=== PATIENT | female | born 1985 | race Two or more races ===

== ENCOUNTER 2019-03-19 04:00 | Emergency (ER) | payer MEDICAID, OTHER ==
[2019-03-19] MEDS ORDERED: Albuterol/Ipratropium NEB.SOL* Albuterol 2.5 MG/Ipratropium 0.5 MG 3 ML INH ONE (04:39)
--- NOTE | 2019-03-19 04:58 | ED ---
Shortness of Breath - HPI Summary HPI Summary: This patient is a 34 year old F presenting to [facility] with a chief complaint of SOB since prior to arrival. Pt reports she has an allergy to dust. She began sneezing and having a runny nose so she took Benadryl. Afterwards she could not breathe. She reports she had not taken Benadryl for quite a while before this episode. Pt has not taken any medication recently. Pt does not use drugs, drink or smoke. Pt has not tried anything breathing treatments. - History of Current Complaint Chief Complaint: EDShortnessOfBreath Time Seen by Provider: 03/19/19 04:12 Hx Obtained From: Patient Onset/Duration: Sudden Onset, Still Present Timing: Constant Dyspnea At: Rest Aggravating Factors: Other - Medication Alleviating Factors: Nothing Associated Signs & Symptoms: Negative - Allergy/Home Medications Allergies/Adverse Reactions: Allergies Allergy/AdvReac Type Severity Reaction Status Date / Time house dust Allergy Shortness Verified 03/19/19 04:19 of Breath MS Povidone Iodine Allergy Hives Verified 05/28/16 21:04 [From Betadine] Home Medications: Home Medications NK [No Home Medications Reported] 03/19/19 [History Confirmed 03/19/19] PMH/Surg Hx/FS Hx/Imm Hx Sensory History: Denies: Hx Legally Blind EENT History: Denies: Hx Deafness - Surgical History Surgery Procedure, Year, and Place: appy 2002 - Immunization History Date of Tetanus Vaccine: UTD Date of Influenza Vaccine: 2014 Infectious Disease History: No Infectious Disease History: Reports: Traveled Outside the [place] in Last 30 Days - Family History Known Family History: Negative: Cardiac Disease - Social History Alcohol Use: None Hx Substance Use: No Substance Use Type: Reports: None Hx Tobacco Use: No Smoking Status (MU): Never Smoked Tobacco - Additional Comments History Additional Comments: Home Medications Medication Instructions Recorded Confirmed Type NK [No Home Medications Reported] 03/19/19 03/19/19 History Review of Systems Negative: Fever Positive: Shortness Of Breath All Other Systems Reviewed And Are Negative: Yes Physical Exam - Summary Physical Exam Summary: General: Well-developed, Well-nourished Female. Appears in moderate respiratory distress HEENT: Normocephalic, Atraumatic. Eyes: Conjuctiva normal, PERRL. Ears: TMs within normal limits. Nares: (-) discharge, (-) erythema. Oropharynx: Clear, mucous membranes moist, (-) exudates. Neck: Soft, FROM, (-) lymphadenopathy, (-) thyromegaly, (-) JVD. Cardiovascular: Normal sinus rhythm, (-) murmur. Lungs: Clear to auscultation bilaterally (-) wheezes, (-) rales, (-) rhonchi. Abdomen: Soft, non-tender, non-distended, (-) organomegaly, normal bowel sounds. Back: (-) CVA tenderness Extremities: No edema. Skin: Warm, dry, (-) rash. Neuro: Alert and oriented x3, no focal deficits. Psychiatric: Moderately anxious. Triage Information Reviewed: Yes Vital Signs On Initial Exam: Initial Vitals Temp Pulse Resp BP Pulse Ox 98.8 F 83 20 00/00 100 03/19/19 04:01 03/19/19 04:01 03/19/19 04:01 03/19/19 04:01 03/19/19 04:01 Vital Signs Reviewed: Yes Procedures - Sedation Patient Received Moderate/Deep Sedation with Procedure: No Diagnostics - Vital Signs Vital Signs Temp Pulse Resp BP Pulse Ox 03/19/19 04:15 90 102/62 100 03/19/19 04:13 84 100 03/19/19 04:01 98.8 F 83 20 00/ 100 - Laboratory Lab Statement: Any lab studies that have been ordered have been reviewed, and results considered in the medical decision making process. Re-Evaluation - Re-Evaluation First Eval Re-Evaluation Time: 05:33 Change: Improved Comment: Pt feels better but still reports some SOB. I have discussed results with the patient. Discussed symptoms that warrant immediate return to ED. Course/Dx - Course Course Of Treatment: This patient is a 34 year old F presenting to [facility] with a chief complaint of SOB since prior to arrival. Pt reports she has an allergy to dust. She began sneezing and having a runny nose so she took Benadryl. Afterwards she could not breathe. She reports she had not taken Benadryl for quite a while before this episode. Pt has not taken any medication recently. Pt does not use drugs, drink or smoke. Pt has not tried anything breathing treatments. Physical exam findings are nml, except pt appears to be in moderate respiratory distress, and she is moderately anxious. In the ED course the patient was given albuterol. After receiving albuterol pt felt much better. Patient will be discharged. The patient is agreeable with this plan. - Diagnoses Provider Diagnoses: SOB (shortness of breath), Environmental allergies Discharge ED - Sign-Out/Discharge Documenting (check all that apply): Patient Departure - Discharge - Discharge Plan Condition: Stable Disposition: HOME Patient Education Materials: Shortness of Breath (ED) Referrals: Scarlet Anderson MD [Primary Care Provider] - 3 Days Additional Instructions: Please follow up with your primary care physician within three days. Please return to ED for any new or worsening symptoms. - Billing Disposition and Condition Condition: STABLE Disposition: Home - Attestation Statements Document Initiated by Becka: Yes Documenting Scribe: Gertrudis Workman Provider For Whom Blazee is Documenting (Include Credential): Sherry Baker MD Scribe Attestation: Gertrudis Weldon, scribed for Sherry Baker MD on 03/19/19 at 0542. Scribe Documentation Reviewed: Yes Provider Attestation: The documentation as recorded by the Gertrudis leavitt accurately reflects the service I personally performed and the decisions made by , Sherry Baker MD Status of Scribe Document: Viewed
[2019-03-19 05:43] VITALS: BP 105/59
[2019-03-19] MEDS ORDERED: Albuterol HFA INHALER* 8 gm MDI INH ONE (05:47)
[2019-03-19] MEDS ORDERED: Albuterol HFA INHALER* 8 gm MDI INH SCH (06:00)
== END 2019-03-19 05:45 | disposition home or self-care (01) ==
LOC: ED 04:00
DX: R06.02 Shortness of breath (principal); J30.2 Other seasonal allergic rhinitis; Z91.041 Radiographic dye allergy status
CPT/HCPCS: 99283; A9270-GY

== ENCOUNTER 2019-08-14 15:53 | Emergency (ER) | payer OTHER ==
--- OUTSIDE RECORDS SUMMARY | 2019-08-14 16:01 | XMS REPORT | Continuity of Care Document ---
:1985 External Reference #:[id number] Author Name Telma Boles MD (transmitted by agent of provider Cynthia Salgado) Address [address], [place] [address] Care Team Providers Name Role Phone Scarlet Anderson MD - Internal Care Team Information Aircrewman [phone] Medicine Lise Velásquez CNP - Adult Health Care Team Information Aircrewman Problems Active Problems Provider Date Allergic rhinitis Scarlet Anderson M.D. Onset: 07/15/2014 Recurrent herpes simplex Scarlet Anderson M.D. Onset: 07/15/2014 Microscopic hematuria Scarlet Anderson M.D. Onset: 08/15/2016 Social History Type Date Description Comments Sex Unknown Tobacco Use Start: Unknown Patient has never smoked Smoking Status Reviewed: 06/18/19 Patient has never smoked Allergies, Adverse Reactions, Alerts Active Allergies Reaction Severity Comments Date Betadine Infection 10/17/2010 Medications Active Medications SIG Qnty Indications Ordering Date Provider Nebulizer 1 unit nebulization 1units Scarlet Anderson, 03/24/2019 Device with albuterol every M.D. 4-6hours and as needed Ventolin HFA 1 to 2 inhalations Unknown every 4 hours as 108(90Base) mcg/Act needed Aerosol History Medications Mometasone Furoate apply to the 15gm Scarlet Anderson, 04/21/2019 - affected area of M.D. 06/18/2019 0.1% Ointment hands twice a day X 7 days Mometasone Furoate apply to affected 45gm L23.5 Scarlet Anderson, 2018 - areas twice a day 7 M.D. 04/08/2019 0.1% Cream days only Prednisone 2 tab by mouth QS Scarlet Anderson, 03/24/2019 - 20mg every day x3 days M.D. 04/02/2019 Tablets then 1 tab daily for 3 days, then 1/2 tab daily for 3 days Ipratropium 1 inhalation via 180ml Scarlet Anderson, 03/24/2019 - [place]/Albuterol nebulizer every 4- M.D. 04/08/2019 Sulfate 6 hours as needed 0.5-2.5(3)mg/3ML Solution Immunizations CPT Code Status Date Vaccine Lot # [id number] Given 05/10/2014 Flu Vaccine Split Virus Preservative Free For [id number] Indiv 3Yr Older 34650 Given 04/13/2013 Flu Vaccine Split Virus Preservative Free For 1345 4p Indiv 3Yr Older 11257 Given 07/17/2012 Influenza Virus 3Yrs & Over [id number] Refused 04/01/2019 Influenza Virus Vaccine, Quadrivalent, Split, Preservative Free [id number] Refused 05/20/2018 Influenza Virus Vaccine, Quadrivalent, Split, Preservative Free Vital Signs Date Vital Result Comment 06/18/2019 11:11am Height 61.75 inches 5'1.75" Weight 170.00 lb Heart Rate 66 /min BP Systolic Sitting 95 mmHg BP Diastolic Sitting 58 mmHg Body Temperature 98.8 F O2 % BldC Oximetry 98 % BMI (Body Mass Index) 31.3 kg/m2 04/21/2019 1:49pm Height 61.75 inches 5'1.75" Weight 173.00 lb Heart Rate 81 /min BP Systolic Sitting 106 mmHg BP Diastolic Sitting 67 mmHg O2 % BldC Oximetry 98 % BMI (Body Mass Index) 31.9 kg/m2 Results Test Acquired Date Facility Test Result H/L Range Note Influenza A & B 04/08/2019 [facility] Flu AB (SEE NOTE) [address] Disclaimer [place] [id number] [phone] Influenza A Molecular NEGATIVE Negative 2 Influenza B Molecular NEGATIVE Negative 1 Suboptimal collection technique may reduce sensitivity of test. Refer to the [facility] Test Catalog for collection information: [email or web address] As with all diagnostic procedures, the laboratory results obtained should be used in conjunction with other clinical information available to the physician, including confirmation by another method, as applicable. 2 Supervisor Gelatin Plant: [id number] Procedures Description No Information Available Medical Devices Description No Information Available Encounters Type Date Location Provider Dx Diagnosis Office Visit 05/22/2019 [facility] Dermatology Tenisha Reyez, L30.9 Dermatitis, 1:45p unspecified Office Visit 04/28/2019 [facility] Dermatology Tenisha Reyez, L30.9 Dermatitis, 10:15a MD unspecified Office Visit 04/21/2019 [facility] Internal Scarlet Anderson L24.5 Irritant contact 1:40p Medicine - [facility]cmob M.D. dermatitis due to other chemical products Office Visit 04/08/2019 [facility] Internal Scarlet Anderson B34.9 Viral infection , 12:10p Medicine - [facility] M.D. unspecified Office Visit 04/01/2019 [facility] Internal Scarlet Anderson L23.5 Allergic contact 1:00p Medicine - [facility] M.D. dermatitis due to other chemical products Office Visit 03/24/2019 [facility] Internal Scarlet Anderson J45.901 Unspecified asthma 11:50a Medicine - [facility] M.D. with (acute) exacerbation Office Visit 03/09/2019 [facility] Internal Scarlet Anderson M79.604 Pain in right leg 12:10p Medicine - [facility]cm[facility] M.D. M76.31 Iliotibial band syndrome, right leg R23.8 Other skin changes Assessments Date Code Description Provider 06/18/2019 L65.9 Nonscarring hair loss, unspecified Telma Boles MD 05/22/2019 L30.9 Dermatitis, unspecified Tenisha Reyez MD 04/28/2019 L30.9 Dermatitis, unspecified Tenisha Reyez MD 04/28/2019 L30.9 Dermatitis, unspecified Tenisha Reyez MD 04/21/2019 L24.5 Irritant contact dermatitis due to other Scarlet Anderson M.D. chemical products 04/08/2019 B34.9 Viral infection, unspecified Scarlet Anderson M.D. 04/01/2019 L23.5 Allergic contact dermatitis due to other Scarlet Anderson M.D. chemical products 03/24/2019 J45.901 Unspecified asthma with (acute) exacerbation Scarlet Anderson M.D. 03/09/2019 M79.604 Pain in right leg Scarlet Anderson M.D. 03/09/2019 M76.31 Iliotibial band syndrome, right leg Scarlet Anderson M.D. 03/09/2019 R23.8 Other skin changes Scarlet Anderson M.D. Plan of Treatment Future Appointment(s):06/23/2019 11:45 am - Tenisha Reyez MD at [facility] Kawkruwvpkk10/09/2020 - Telma Boles MDL65.9 Nonscarring hair loss, unspecifiedComments:If labs are normal, try to take Biotin and see if that will help Functional Status Description No Information Available Mental Status Description No Information Available Referrals Refer to Dr Reason for Referral Status Appt Date Tenisha Reyez MD Closed 04/28/2019 [facility], [place] [id number] [phone]
--- OUTSIDE RECORDS SUMMARY | 2019-08-14 16:01 | XMS REPORT | Continuity of Care Document ---
:1985 External Reference #:[id number] Author Name Flower Nieves M.D., FACP (transmitted by agent of provider Rosalinda Ferguson) Address [address], [place] [address] Care Team Providers Name Role Phone Scarlet Anderson MD - Internal Care Team Information White Washer Piler Medicine Lise Velásquez CNP - Adult Health Care Team Information [employer] Washer Piler Problems Active Problems Provider Date Allergic rhinitis Scarlet Anderson M.D. Onset: 07/15/2014 Recurrent herpes simplex Scarlet Anderson M.D. Onset: 07/15/2014 Microscopic hematuria Scarlet Anderson M.D. Onset: 08/15/2016 Social History Type Date Description Comments Sex Unknown Tobacco Use Start: Unknown Patient has never smoked Smoking Status Reviewed: 07/13/19 Patient has never smoked Allergies, Adverse Reactions, Alerts Active Allergies Reaction Severity Comments Date Betadine Infection 10/17/2010 Medications Active Medications SIG Qnty Indications Ordering Date Provider Valacyclovir HCL 1 by mouth bid as 30tabs B00.1 Flower Nieves, 07/13/2019 needed M.D., FACP 500mg Tablets Nebulizer 1 unit nebulization 1units Scarlet Anderson, 03/24/2019 Device with albuterol every M.D. 4-6hours and as needed Ventolin HFA 1 to 2 inhalations Unknown every 4 hours as 108(90Base) mcg/Act needed Aerosol Nyquil Severe 2 tabs every 4 hours Unknown Cold/Flu as needed 5-6.25-10-325mg Capsules History Medications Mometasone Furoate apply to the [...] inhalation via 180ml Scarlet Anderson, 03/24/2019 - [place]/Albuterol nebulizer every 4- M.D. 04/08/2019 Sulfate 6 hours as needed 0.5-2.5(3)mg/3ML Solution Immunizations CPT Code Status Date Vaccine Lot # [id number] Given 05/10/2014 Flu Vaccine Split Virus Preservative Free For [id number] Indiv 3Yr Older 95846 Given 04/13/2013 Flu Vaccine Split Virus Preservative Free For 1345 4p Indiv 3Yr Older 75989 Given 07/17/2012 Influenza Virus 3Yrs & Over 75783 Refused 04/01/2019 Influenza Virus Vaccine, Quadrivalent, Split, Preservative Free 78036 Refused 05/20/2018 Influenza Virus Vaccine, Quadrivalent, Split, Preservative Free Vital Signs Date Vital Result Comment 07/13/2019 11:39am Height 61.75 inches 5'1.75" Weight 169.38 lb Heart Rate 89 /min BP Systolic 118 mmHg BP Diastolic 60 mmHg Body Temperature 99.3 F O2 % BldC Oximetry 98 % BMI (Body Mass Index) 31.2 kg/m2 06/18/2019 11:11am Height 61.75 inches 5'1.75" Weight 170.00 lb Heart Rate 66 /min BP Systolic Sitting 95 mmHg BP Diastolic Sitting 58 mmHg Body Temperature 98.8 F O2 % BldC Oximetry 98 % BMI (Body Mass Index) 31.3 kg/m2 Results Test Acquired Date Facility Test Result H/L Range Note CBC Auto 06/18/2019 [facility] White Blood 5.8 10^3/uL Normal 3.5-10.[address] [place] [address] [phone] Red Blood Count 4.06 10^6/uL Normal 3.70-4.87 Hemoglobin 11.2 g/dL Low 12.0-16.0 Hematocrit 34 % Low 35-47 Mean Corpuscular Volume 84 fL Normal 80-97 Mean Corpuscular Hemoglobin 28 pg Normal 27-31 Mean Corpuscular HGB Conc 33 g/dL Normal 31-36 Red Cell Distribution Width 16 % High 10-15 Platelet Count 323 10^3/uL Normal 150-450 Mean Platelet Volume 8.6 fL Normal 7.4-10.4 Abs Neutrophils 3.8 10^3/uL Normal 1.5-7.7 Abs Lymphocytes 1.4 10^3/uL Normal 1.0-4.8 Abs Monocytes 0.5 10^3/uL Normal 0-0.8 Abs Eosinophils 0.1 10^3/uL Normal 0-0.6 Abs Basophils 0.0 10^3/uL Normal 0-0.2 Abs Nucleated RBC 0.0 10^3/uL Granulocyte % 66.3 % Lymphocyte % 23.9 % Monocyte % 8.2 % Eosinophil % 1.2 % Basophil % 0.4 % Nucleated Red Blood Cells % 0.0 Laboratory 06/18/2019 [facility] TSH (Thyroid 1.57 Normal 0.34 -5.60 test finding [facility] Stim Horm) mcIU/[place] [address] [phone] Comp Metabolic 06/18/2019 [facility] Sodium 138 mmol/L Normal 135-145 [place] [address] [phone] Potassium 4.1 mmol/L Normal 3.5-5.0 Chloride 107 mmol/L Normal 101-111 Co2 Carbon Dioxide 25 mmol/L Normal 22-32 Anion Gap 6 mmol/L Normal 2-11 Glucose 97 mg/dL Normal 70-100 Blood Urea Nitrogen 12 mg/dL Normal 6-24 Creatinine 0.61 mg/dL Normal 0.51-0.95 BUN/Creatinine Ratio 19.7 Normal 8-20 Calcium 9.3 mg/dL Normal 8.6-10.3 Total Protein 6.6 g/dL Normal 6.4-8.9 Albumin 4.1 g/dL Normal 3.2-5.2 Globulin 2.5 g/dL Normal 2-4 Albumin/Globulin Ratio 1.6 Normal 1-3 Total Bilirubin 0.40 mg/dL Normal 0.2-1.0 Alkaline Phosphatase 76 U/L Normal 34-104 Alt 13 U/L Normal 7-52 Ast 14 U/L Normal 13-39 Egfr Non- 111.0 >60 Egfr 134.3 >60 1 Influenza A & B 04/08/2019 [facility] Flu AB Disclaimer (SEE NOTE) 2 Request [address] [place] [address] [phone] Influenza A Molecular NEGATIVE Negative 3 Influenza B Molecular NEGATIVE Negative 1 Because ethnic data is not always readily available, this report includes an eGFR for both -Americans and non- Americans. The National Kidney Disease Education Program (NKDEP) does not endorse the use of the MDRD equation for patients that are not between the ages of 18 and 70, are , have extremes of body size, muscle mass, or nutritional status, or are non- or non-. According to the National Kidney Foundation, irrespective of diagnosis, the stage of the disease is based on the level of kidney function: Stage Description GFR(mL/min/1.73 m(2)) 1 Kidney damage with normal or decreased GFR 90 2 Kidney damage with mild decrease in GFR 60-89 3 Moderate decrease in GFR 30-59 4 Severe decrease in GFR 15-29 5 Kidney failure <15 (or dialysis) 2 Suboptimal collection technique may reduce sensitivity of test. Refer to the [facility] Test Catalog for collection information: [email or web address] As with all diagnostic procedures, the laboratory results obtained should be used in conjunction with other clinical information available to the physician, including confirmation by another method, as applicable. 3 Waste Transportation Technician: [id number] Procedures Description No Information Available Medical Devices Description No Information Available Encounters Type Date Location Provider Dx Diagnosis Office Visit 06/23/2019 [facility] Dermatology Tenisha Reyez, L30.9 Dermatitis, 11:45a unspecified Office Visit 06/18/2019 [facility] Internal Telma Boles MD L65.9 Nonscarring hair 11:00a Medicine - Ccmob loss, unspecified Office Visit 05/22/2019 [facility] Dermatology Tenisha Reyez, L30.9 Dermatitis, 1:45p unspecified Office Visit 04/28/2019 [facility] Dermatology Tenisha Reyez, L30.9 Dermatitis, 10:15a unspecified Office Visit 04/21/2019 [facility] Internal Scarletbilly Anderson, L24.5 Irritant contact 1:40p [facility] dermat[facility] due to other chemical products Office Visit 04/08/2019 [facility] Internal Scarlet Anderson, B34.9 Viral infection , 12:10p [facility] Office Visit 04/01/2019 [facility] Internal Scarlet Anderson L23.5 Allergic contact 1:00p [facility] dermatitis due to other chemical products Office Visit 03/24/2019 [facility] Internal Scarlet Anderson J45.901 Unspecified asthma 11:50a [facility] with (acute) exacerbation Office Visit 03/09/2019 [facility] Internal cSarlet Anderson, M79.604 Pain in right leg 12:10p [facility] M76.31 Iliotibial band syndrome, right leg R23.8 Other skin changes Assessments Date Code Description Provider 07/13/2019 B00.1 Herpesviral vesicular dermatitis Flower Nieves M.D., FACP 07/13/2019 L81.1 Chloasma Flower Nieves M.D., FACP 06/23/2019 L30.9 Dermatitis, unspecified Tenisha Reyez MD 06/18/2019 L65.9 Nonscarring hair loss, unspecified Telma [...] products 03/24/2019 J45.901 Unspecified asthma with (acute) Scarlet Anderson M.D. exacerbation 03/09/2019 M79.604 Pain in right leg Scarlet Anderson M.D. 03/09/2019 M76.31 Iliotibial band syndrome, right leg Scarlet Anderson M.D. 03/09/2019 R23.8 Other skin changes Scarlet Anderson M.D. Plan of Treatment Future Appointment(s):08/05/2019 11:45 am - Tenisha Reyez MD at [facility] Icocngoijlq22/03/2020 - Flower Nieves M.D., FACPB00.1 Herpesviral vesicular dermatitisNew Medication:Valacyclovir HCL 500 mg - 1 by mouth bid as neededComments:HSV DERMATITIS:I understand that this problem often occurs in the setting of an upper respiratory illness or stress. I have sent an rx for valacyclovir to your pharmacy. Take this twice daily for 5 days.Going forward, if you have the suspicion that this is about to recur, start taking the antiviral medication as soon as possible.L81.1 ChloasmaComments: HYPERPIGMENTATION:I do not have an understanding of why you have the dark spots on the backs of yourhands. Some medications can react with sun exposure. Sometimes this is a hormonal issue.I recommend that you follow up with your geological specialist. Functional Status Description No Information Available Mental Status Description No Information Available Referrals Refer to Reason for Referral Status Appt Date Tenisha Reyez MD Closed 04/28/[address] [place] [address], [facility] [place] [address] [phone]
[2019-08-14 16:14] VITALS: BP 106/59
--- NOTE | 2019-08-14 16:19 | UC ---
Respiratory Complaint HPI - HPI Summary HPI Summary: 34 yo female presents with subjective SOB. She tells me that she has a history of SOB. She has been evaluated in the ED and by asthma and allergy many times for this and has been told it is due to "stress" and "anxiety". She has an albuterol inhaler that she uses that makes her feel better when she uses this during her symptoms, but has lost her inhaler and has not been able to use it. Last night she started feeling that she cannot exhale fully and became admittedly anxious because she does not have her inhaler. She is requesting a refill of her inhaler today. She denies recent illness, fever, sinus symptoms, cough, chest pain, abdominal pain, n/v. - History of Current Complaint Chief Complaint: UCRespiratory Stated Complaint: BREATHING PROBLEMS Time Seen by Provider: 08/14/19 16:19 Hx Obtained From: Patient Hx Last Menstrual Period: 08/03/19 Onset/Duration: Sudden Onset Severity Currently: None Pain Intensity: 0 - Allergies/Home Medications Allergies/Adverse Reactions: Allergies Allergy/AdvReac Type Severity Reaction Status Date / Time house dust mite Allergy Sneezing Verified 08/14/19 16:15 povidone-iodine Allergy Hives Verified 08/14/19 16:15 Home Medications: Home Medications Albuterol HFA INHALER* [Ventolin HFA Inhaler*] 1 puff INH Q6H PRN #1 mdi [Rx] PMH/Surg Hx/FS Hx/Imm Hx - Additional Past Medical History Additional PMH: None - Surgical History Surgical History: Yes Surgery Procedure, Year, and Place: 2002 - Family History Known Family History: Negative: Cardiac Disease - Social History Lives: With Family Alcohol Use: None Substance Use Type: None Smoking Status (MU): Never Smoked Tobacco - Immunization History Most Recent Influenza Vaccination: 04/20/15 Most Recent Tetanus Shot: needs tdap Most Recent Pneumonia Vaccination: n/a Review of Systems All Other Systems Reviewed And Are Negative: No Constitutional: Positive: Negative Skin: Positive: Negative Eyes: Positive: Negative ENT: Positive: Negative Respiratory: Positive: Shortness Of Breath Cardiovascular: Positive: Negative Gastrointestinal: Positive: Negative Neurological/Mental Status: Positive: Negative Psychological: Positive: Negative Physical Exam - Summary Physical Exam Summary: GENERAL: NAD. WDWN. No pain distress. SKIN: No rashes, sores, lesions, or open wounds. HEENT: Head: AT/NC Eyes: EOM intact. Conjunctiva clear without inflammation or discharge. Ears: Hearing grossly normal. TMs intact, no bulging, erythema, or edema. Nose: Nasal mucosa pink and moist. NTTP maxillary and frontal sinus. Throat: Posterior oropharynx without exudates, erythema, or tonsillar enlargement. Uvula midline. NECK: Supple. Nontender. No lymphadenopathy. CHEST: CTAB. No r/r/w. No accessory muscle use. Breathing comfortably and in no distress. CV: RRR. Pulses intact. Cap refill <2seconds NEURO: Alert. PSYCH: Age appropriate behavior. Triage Information Reviewed: Yes Vital Signs: Initial Vital Signs Temp 99.6 F 08/14/19 16:07 Pulse 82 08/14/19 16:07 Resp 12 08/14/19 16:07 BP 106/59 08/14/19 16:07 Pulse Ox 100 08/14/19 16:07 Vital Signs Reviewed: Yes Diagnostics - Radiology CXR Radiology Interpretation Completed By: Radiologist Summary of Radiographic Findings: IMPRESSION: NO ACTIVE CARDIOPULMONARY DISEASE. Respiratory Course/Dx - Course Course Of Treatment: She is breathing comfortably and is in no distress. PERC 0 CXR negative. Will refill her inhaler and encourage her to f/u with her asthma and allergy provider and/or PCP. If her symptoms worsen or do not improve to go to the ED immediately. - Differential Dx/Diagnosis Provider Diagnosis: Dyspnea Discharge ED - Sign-Out/Discharge Documenting (check all that apply): Patient Departure All imaging exams completed and their final reports reviewed: Yes - Discharge Plan Condition: Stable Disposition: HOME Prescriptions: Albuterol HFA INHALER* [Ventolin HFA Inhaler*] 1 puff INH Q6H PRN #1 mdi PRN Reason: Sob/Wheezing Patient Education Materials: Dyspnea (ED) Referrals: Scarlet Anderson MD [Primary Care Provider] - Additional Instructions: If you develop a fever, shortness of breath, chest pain, new or worsening symptoms - please call your PCP or go to the ED immediately. Your chest x-ray was normal today. Refill of your inhaler has been sent to the pharmacy. - Billing Disposition and Condition Condition: STABLE Disposition: Home
== END 2019-08-14 16:46 | disposition home or self-care (01) ==
LOC: UCEAST 15:53
DX: R06.00 Dyspnea, unspecified (principal); J45.909 Unspecified asthma, uncomplicated; Z91.09 Other allergy status, other than to drugs and biological substances
CPT/HCPCS: 71046; 99211; G0463